=== PATIENT | female | born 1970 | race Caucasian/White ===

== ENCOUNTER 2019-03-30 09:25 | Emergency (ER) | payer BC, MEDICAID ==
--- NOTE | 2019-03-30 10:08 | Emergency Department Record ---
History of Present Illness - General Chief Complaint: Recheck - Other Stated Complaint: SURGICAL INCISION BLEEDING Time Seen by Provider: 03/30/19 09:47 Source: Patient Mode of arrival: Ambulatory Limitations: No limitations - History of Present Illness Initial Comments: pt had hernia surgery on 03/19. last night it started leaking a lot of dark blood Complaint: Wound re-check Onset/Timin -: Hour(s) Initial Visit For: Other Returns Today for: Wound recheck Symptoms Since Prior Visit: Other Associated Symptoms: Other Treatments Prior to Arrival: Dressings - Related Data Home Medications Medication Instructions Recorded Confirmed Last Taken Acetaminophen with Codeine 1 each PO ASDIR 03/30/19 03/30/19 03/29/19 [Tylenol with Codeine #3 Tablet] Fluticasone Propionate [Flonase] 2 spray EACH NARES DAILY 03/30/19 03/30/19 03/30/19 Levetiracetam [Keppra] 250 mg PO DAILY 03/30/19 03/30/19 03/30/19 Montelukast Sodium [Singulair] 10 mg PO DAILY 03/30/19 03/30/19 03/29/19 Sumatriptan Succinate [Imitrex] 100 mg PO ASDIR 03/30/19 03/30/19 Unknown Varenicline Tartrate [Chantix] 1 mg PO BID 03/30/19 03/30/19 03/30/19 Previous Rx's Medication Instructions Recorded Amoxicillin/Potassium Clav 1 each PO BID #20 tablet 03/30/19 [Augmentin 875Mg/125Mg] Allergies Allergy/AdvReac Type Severity Reaction Status Date / Time No Known Drug Allergies Allergy Verified 03/30/19 09:30 Travel Screening - Travel/Exposure Within Last 30 Days Have you traveled within the last 30 days?: No - Travel/Exposure Within Last Year Have you traveled outside the [place] in the last year?: No - Additonal Travel Details Have you been exposed to anyone with a communicable illness?: No - Travel Symptoms Symptom Screening: None Review of Systems Reviewed: No additional complaints except as noted below Constitutional: Reports: As per HPI. Denies: Chills, Fever, Malaise, Night swea ts, Weakness, Weight change Eyes: Reports: As per HPI. Denies: Eye discharge, Eye pain, Photophobia, Vision change ENT: Reports: As per HPI. Denies: Congestion, Dental pain, Ear pain, Epistaxis, Hearing loss, Throat pain Respiratory: Reports: As per HPI. Denies: Cough, Dyspnea, Hemoptysis, Stridor, Wheezes Cardiovascular: Reports: As per HPI. Denies: Arrhythmia, Chest pain, Dyspnea on exertion, Edema, Murmurs, Orthopnea, Palpitations, Paroxysmal nocturnal dyspnea, Rheumatic Fever, Syncope Endocrine: Reports: As per HPI. Denies: Fatigue, Heat or cold intolerance, P olydipsia, Polyuria Gastrointestinal: Reports: As per HPI. Denies: Abdominal pain, Constipation, Diarrhea, Hematemesis, Hematochezia, Melena, Nausea, Vomiting Genitourinary: Reports: As per HPI. Denies: Abnormal menses, Discharge, Dyspareunia, Dysuria, Frequency, Hematuria, Incontinence, Retention, Urgency Musculoskeletal: Reports: As per HPI. Denies: Arthralgia, Back pain, Gout, Joint swelling, Myalgia, Neck pain Skin: Reports: As per HPI. Denies: Bruising, Change in color, Change in hair/n ails, Lesions, Pruritus, Rash Neurological: Reports: As per HPI. Denies: Abnormal gait, Confusion, Headache, Numbness, Paresthesias, Seizure, Tingling, Tremors, Vertigo, Weakness Psychiatric: Reports: As per HPI. Denies: Anxiety, Auditory hallucinations, Depression, Homicidal thoughts, Suicidal thoughts, Visual hallucinations Hematological/Lymphatic: Reports: As per HPI. Denies: Anemia, Blood Clots, Easy bleeding, Easy bruising, Swollen glands Past Medical History - SOCIAL HISTORY Smoking Status: Light tobacco smoker (<10/day) Alcohol Use: Occasional Drug Use: None - RESPIRATORY Hx Respiratory Disorders: No - CARDIOVASCULAR Hx Cardio Disorders: No - NEURO Hx Neuro Disorders: Yes Hx Headaches: Yes - GI Hx GI Disorders: No - Hx Genitourinary Disorders: No - ENDOCRINE Hx Endocrine Disorders: No - MUSCULOSKELETAL Hx Musculoskeletal Disorders: No - PSYCH Hx Psych Problems: No - HEMATOLOGY/ONCOLOGY Hx Hematology/Oncology Disorders: No Family Medical History Any Significant Family History?: Yes Hx Cancer: Father, Grandparents Physical Exam - General General Appearance: Alert, Oriented x3, Cooperative, No acute distress - Head Head exam: Normal inspection - Eye Eye exam: Normal appearance, PERRL, EOMI Pupils: Normal accommodation - ENT ENT exam: Normal exam, Mucous membranes moist, Normal external ear exam, Normal orophraynx Ear exam: Normal external inspection. negative: External canal tenderness Nasal Exam: Normal inspection. negative: Discharge, Sinus tenderness Mouth exam: Normal external inspection, Tongue normal Teeth exam: Normal inspection. negative: Dental caries Throat exam: Normal inspection. negative: Tonsillar erythema, Tonsillar exudate - Neck Neck exam: Normal inspection, Full ROM. negative: Tenderness - Respiratory Respiratory exam: Normal lung sounds bilaterally. negative: Respiratory distress - Cardiovascular Cardiovascular Exam: Regular rate, Normal rhythm, Normal heart sounds - GI/Abdominal GI/Abdominal exam: Soft, Normal bowel sounds, Tenderness, Other (healing midline incision w slight dehisence, leaking dark blood) - Rectal Rectal exam: Deferred - exam: Deferred - Extremities Extremities exam: Normal inspection, Full ROM, Normal capillary refill. negative: Tenderness - Back Back exam: Reports: Normal inspection, Full ROM. Denies: Muscle spasm, Rash noted, Tenderness - Neurological Neurological exam: Alert, Normal gait, Oriented X3, Reflexes normal - Psychiatric Psychiatric exam: Normal affect, Normal mood - Skin Skin exam: Dry, Intact, Normal color, Warm Course Vital Signs 03/30/19 09:36 Temperature 97.9 F Pulse Rate 92 H Respiratory 16 Rate Blood Pressure 119/91 Pulse Ox 99 - Reevaluation(s) Reevaluation #1: 03/30/19 10:07 area cleaned, dark blood expressed Reevaluation #2: 03/30/19 12:59 ct shows c2 collections of probale clot ve absces vs fat necrosis. pt afebrile and not in pain. most likely hematoma 03/30/19 13:01 ct shows thickened gb neck Reevaluation #3: 03/30/19 13:02 d/w dr lawton who wanted pt sent home on augmentin to f/u w dr garcia Medical Decision Making - Lab Data Result diagrams: 03/30/19 10:08 03/30/19 10:08 Disposition Disposition: Discharge Clinical Impression: Postoperative hematoma Qualifiers: Surgical complication system/body Area: subcutaneous tissue Procedure type: non-dermatologic Qualified Code(s): L76.32 - Postprocedural hematoma of skin and subcutaneous tissue following other procedure Disposition: Home, Self-Care Condition: (1) Good Instructions: Wound Healing and Your Diet (ED), Wound Dehiscence (ED), Hematoma (ED) Additional Instructions: follow up with dr garcia on monday. return sooner if worse. have ultrasound of gallbladder Prescriptions: Amoxicillin/Potassium Clav [Augmentin 875Mg/125Mg] 1 each PO BID #20 tablet Forms: Patient Portal Access Quality - Quality Measures Quality Measures: N/A - Blood Pressure Screening Does Patient Have Any of the Following: No Blood Pressure Classification: Hypertensive Reading Systolic Measurement: 119 Diastolic Measurement: 91 Screening for High Blood Pressure: < Pre-Hypertensive BP, F/U Documented > [G8950] Pre-Hypertensive Follow-up Interventions: Follow-up with rescreen every year.
[2019-03-30 10:13] LABS: ABSOLUTE NEUTROPHIL COUNT 2.82; BASO % 1.5 % (0-6); EOS % 5.1 % (0-6); GRAN % 60.1 % (47-80); HEMATOCRIT 39.8 % (35.0-47.0); HEMOGLOBIN 12.6 gm/dl (11.6-16.0); LYMPH % 22.4 % (16-45); MEAN CELL VOLUME 95.9 fl (81-97); MEAN CORPUSCULAR HEMOGLOBIN 30.4 pg (27-33); MEAN CORPUSCULAR HGB CONC 31.7 g/dl (32-36); MEAN PLATELET VOLUME 9.1 fl (7.4-10.4); MONO % 10.9 % (0-9); PLATELET COUNT 339 K/uL (130-400); RED BLOOD COUNT 4.15 M/uL (3.80-5.40); RED CELL DISTRIBUTION WIDTH 13.4 % (11.5-14.5); WHITE BLOOD COUNT W/O DIFF 4.7 K/uL (4.2-12.2)
[2019-03-30 10:25] LABS: BLOOD UREA NITROGEN 14 mg/dL (6-20); CREATININE 0.5 mg/dL (0.5-0.9); EST GLOMERULAR FILTRATION RATE > 60 mL/min
[2019-03-30 10:28] LABS: GLUCOSE,RANDOM 98 mg/dL (74-109)
--- NOTE | 2019-04-02 20:59 | CT SCAN REPORT ---
EXAM: CT SCAN ABDOMEN/PELVIS W CONTRAST HISTORY: RECENT HERNIA SURGERY. BLEEDING AT SURGICAL SITE. TECHNIQUE: Contrast-enhanced helical CT examination of the abdomen and pelvis is performed including delayed images through the kidneys with 100 mL of Omnipaque-300 utilized. COMPARISON: None. FINDINGS: There is minor dependent atelectasis in the right lung base. The lung bases are otherwise clear and there is no pleural or pericardial effusion. The heart is nonenlarged. There is mild decreased density of the liver relative to the spleen consistent with steatosis. A too small to characterize hypodense lesion is noted in the lateral subcapsular aspect of the inferior right liver lobe measuring 4 mm. This is nonspecific but, in the absence of a known malignant primary tumor or absence of known liver disease, is likely a cyst. There is also a hypodense mass-like area with peripheral discontinuous peripheral nodular enhancement. This measures 1.8 x 1.3 cm. It is located in the medial aspect of the posterior segment of the right liver lobe (segment 6). On delayed images, it is more uniformly enhanced and this is consistent with a cavernous hemangioma. The spleen, pancreas, adrenal glands, and kidneys are normal in appearance. There is a tiny adherent calcified gallstone along the posteromedial wall of the gallbladder body vs. a polyp. There is also apparent mild nodularity of the fundus of the gallbladder. This may relate to a Phrygian cap, which is a normal variant. A focal gallbladder wall lesion, such as that seen with adenomyomatosis, would be difficult to exclude. Malignancy is much less likely. This measures 9 mm in diameter. Comparison to prior examinations, if any exist, is recommended. No biliary ductal dilatation. No free intraperitoneal air. The portal vein appears patent. No intraabdominal nor retroperitoneal lymphadenopathy. The central mesenteric vasculature appears patent. The abdominal aorta and iliac arteries are without aneurysmal dilatation. No pelvic mass, lymphadenopathy, or free pelvic fluid. The uterus is surgically absent. Evaluation of the urinary bladder is limited by lack of distention. No gross bowel dilatation nor bowel wall thickening. The appendix is visualized and normal in appearance. There is diverticulosis of the left colon without evidence of diverticulitis. Postsurgical changes are noted within the midline upper abdominal wall. There is a mass-like area in the subcutaneous region peripheral to the rectus sheaths. This measures 3.5 x 9.5 x 5 cm. A similar mass-like area is noted in the deep abdominal wall peripheral to the peritoneum measuring 6 x 5 x 3 cm. A few tiny gas collections are associated with these mass-like areas and these likely relate to postsurgical hematomas. A component of fat necrosis would be difficult to exclude. No lytic or blastic bone lesion. There are moderate to advanced degenerative disc/degenerative endplate changes at the L5-S1 level causing ventral sac deformity eccentric to the left and lateral recess narrowing. IMPRESSION: 1. POSTSURGICAL CHANGES WITHIN THE UPPER ABDOMINAL WALL. SOMEWHAT HETEROGENEOUS MASS-LIKE AREAS IN THE PERIPHERAL AND DEEP PORTIONS OF THE ABDOMINAL WALL AT THE SURGICAL SITE SUSPICIOUS FOR HEMATOMAS. A COMPONENT OF FAT NECROSIS WOULD BE DIFFICULT TO EXCLUDE. 2. NO ACUTE ABNORMALITY WITHIN THE PERITONEAL CAVITY. 3. HEMANGIOMA WITHIN THE RIGHT LIVER LOBE. TOO SMALL TO CHARACTERIZE HYPODENSE LESION IN THE INFERIOR RIGHT LIVER LOBE IS LIKELY A CYST OR LESS LIKELY HEMANGIOMA. MILD DIFFUSE HEPATIC STEATOSIS. 4. TINY POLYP VS. ADHERENT STONE WITHIN THE GALLBLADDER BODY. NINE MM NODULAR THICKENING OF THE GALLBLADDER FUNDUS MAY JUST REPRESENT A NORMAL-VARIANT PHRYGIAN CAP, THOUGH TRUE WALL THICKENING CANNOT BE EXCLUDED. 5. NOT MENTIONED ABOVE IS A TOO SMALL TO CHARACTERIZE HYPODENSE LESION WITHIN THE POSTERIOR SEGMENT OF THE RIGHT LIVER LOBE MEASURING 5 MM (SEGMENT 6-7). THIS IS NONSPECIFIC BUT LIKELY A CYST OR HEMANGIOMA. JOB NUMBER: [id number] MTDD
== END 2019-03-30 13:19 | disposition home or self-care (01) ==
LOC: ER 09:25
DX: K91.870 Postprocedural hematoma of a digestive system organ or structure following a digestive system procedure (principal); Y83.8 Other surgical procedures as the cause of abnormal reaction of the patient, or of later complication, without mention of misadventure at the time of the procedure; F17.210 Nicotine dependence, cigarettes, uncomplicated
CPT/HCPCS: 99283; 99284; 85025; 80048; 74177; Q9967